=== PATIENT | female | born 1965 ===

== ENCOUNTER 2022-03-07 10:51 | Emergency (ER) | payer OTHER, SELFPAY ==
--- NOTE | ~2022-03-07 | XR_ITS ---
EXAMINATION: XR CHEST CLINICAL INFORMATION: Shortness of breath. COMPARISON: None TECHNIQUE: 2 views of the chest were obtained. FINDINGS: No significant abnormality is noted involving the heart, lungs, mediastinum, bony thorax or soft tissues. XR/XR chest 2V IMPRESSION: No acute cardiopulmonary process.
[2022-03-07 11:03] VITALS: BP 144/92; PULSE 89; RESP 20; TEMP 36.8; O2SAT 99; BMI 49.1
[2022-03-07 11:28] LABS: COVID-19 Test Negative (Negative); IDNOW Serial# 16C4AD1C
--- NOTE | 2022-03-07 12:01 | ED.GENADULT ---
HPI - General Adult General Chief complaint: Dyspnea Stated complaint: Cough, asthma Time Seen by Provider: 03/07/22 11:23 Source: patient Mode of arrival: ambulatory Limitations: no limitations History of Present Illness HPI narrative: 57-year-old female history of asthma presents to the ED for coughing, headache, and body aches for the past 2 days. Patient states coughing up green phlegm. Patient states mild relief with albuterol nebulizer and inhalers. Patient denies any leg swelling, calf pain, coughing up blood, chest pain on inspiration, or any chest pain. Patient states having nonstop coughing fits. Related Data Previous Rx's Medication Instructions Recorded azithromycin 250 mg tablet See Rx Instructions PO .COMPLEX #6 03/07/22 tabs codeine 10 mg-guaifenesin 100 mg/5 10 ml PO Q6H PRN cold symptoms 3 03/07/22 mL oral liquid (Guaifenesin AC) days #120 mL prednisone 20 mg tablet 60 mg PO DAILY 5 days #15 tabs 03/07/22 Allergies Allergy/AdvReac Type Severity Reaction Status Date / Time Penicillins [PENICILLINS] Allergy Unknown SWELLING Verified 03/07/22 11:03 Review of Systems Review of Systems: Coughing green phlegm. Headache, body aches. Yes all other systems are reviewed and are negative PMFSH Social History Social History Advance Directives: No Advance Directives Information Provided: Yes Physical Exam ED Vital Signs: Vital Signs - 24 hr 03/07/22 11:03 03/07/22 12:42 Temperature 98.2 F Pulse Rate 89 78 Respiratory Rate 20 18 Blood Pressure 144/92 H Pulse Oximetry 99 Oxygen Delivery Method Room Air BMI result Body Mass Index 49.1 Const General: cooperative, healthy appearing, comfortable, no acute distress, well developed, alert, awake and Physically active Orientation/consciousness: oriented to time and patient oriented x3 HENMT Head: Yes normal to inspection, Yes No palpable skull fracture present, Yes normocephalic, Yes atraumatic and No abrasion Eyes General: appearance normal, both eyes and all related structures Neck Neck: Yes normal visual inspection, Yes full ROM, Yes no lymphadenopathy, Yes no meningeal signs, Yes trachea midline, Yes supple, No anterior neck swelling and No tender Chest Chest palpation & inspection: normal inspection of the chest and normal palpation of entire chest wall Resp Effort & Inspection: normal respiratory effort and able to speak in complete sentences Auscultation: wheezes expiratory wheezes Cardio Jugular venous distension: no JVD Heart sounds: S1 normal heart sound present and S2 normal heart sound present GI Inspection: Yes normal to inspection and No abdominal wall ecchymosis Palpation (GI): Soft to palpation, not firm, nontender, no guarding and not rigid General: No CVA tenderness and Yes no CVA tenderness Back/Spine/Pelvis Back: no CVA tenderness, No CVA tenderness and No back tenderness Skin General skin exam: no rashes or lesions noted and elasticity normal Neuro General: oriented to time, patient oriented x3, gait normal and no meningeal signs Cranial nerves: Yes CN's II-XII intact bilaterally Extrem Other: Lower extremities negative for swelling, pitting edema, or calf tenderness. General: Yes normal to inspection and Yes full ROM Psych Appearance: grossly normal, well kempt and not disheveled Course Course Course Narrative: History physical exam sound like asthma exacerbation. Will order nebulizers steroids and cough medication. COVID swab ordered. Chest x-ray ordered. Reevaluation(s) Reevaluation #1: COVID test came back negative. Chest x-ray normal. diagnosis bronchitis. Not suspecting any cardiac etiology. History physical exam indicate asthma exacerbation. Time: 20:56 Medical Decision Making [facility] Narrative Medical decision making narrative: Asthma Lab Data Labs: Lab Results 03/07/22 Range/Units 11:08 COVID-19 ([place]) Negative (Negative) COVID-19 Clin Com See Note Discharge Plan Discharge Clinical Impression: Asthma with exacerbation Patient Disposition: Home, Self-Care Instructions: Asthma (ED) Additional Instructions: You're covid swab and chest xray were normal. Recommend continue using your albuterol inahler and nebulizer at home. Return to the ED immediately for any chest pain, coughing up blood, shortness of breath, chest pain on inspiration, leg swelling, calf pain, weakness, dizziness, rash, fever, chills, or any other concerning symptoms. Please follow up PCP Prescriptions: New prednisone 20 mg tablet 60 mg PO DAILY 5 Days Qty: 15 0RF azithromycin 250 mg tablet See Rx Instructions .ROUTE .COMPLEX Qty: 6 0RF Rx Instructions: For 250 mg dose pack: take 500 mg today (day 1), then 250 mg for 4 days (days 2-5) codeine-guaifenesin [Guaifenesin AC] 10-100 mg/5 mL liquid 10 ml PO Q6H PRN (Reason: cold symptoms) 3 Days Qty: 120 0RF Rx Instructions: Side effect of drowsiness. Do not drive or work while taking medication Stand Alone Forms: Work/School Release Print Language: Kyrgyz
[2022-03-07] MEDS: predniSONE 20 MG TABLET 60 MG PO (12:40)
[2022-03-07] MEDS: Albuterol/Iprat 2.5/0.5MG 3 ML AMPUL.NEB INHALE (12:40)
[2022-03-07] MEDS: guaiFEN/Codeine SF 200/20/10ML 10 ML LIQUID PO (12:41)
[2022-03-07 12:42] VITALS: PULSE 78; RESP 18; O2SAT 96
== END 2022-03-07 13:56 | disposition home or self-care (01) ==
PROVIDERS: Emergency Provider Student in an Organized Health Care Education/Training Program
DX: J45.901 Unspecified asthma with (acute) exacerbation (principal); Z20.822 Contact with and (suspected) exposure to COVID-19; R51.9 Headache, unspecified
CPT/HCPCS: 71046; 87635; 94640; 99284

== ENCOUNTER 2024-01-26 02:50 | Observation (INO) | payer OTHER, SELFPAY ==
[2024-01-26] VITALS (7 sets, daily range): BP systolic 123–192; BP diastolic 64–85; PULSE 52–85; RESP 12–20; TEMP 36.1–36.4; O2SAT 92–99; BMI 45.2
--- NOTE | 2024-01-26 | ECG_ITS ---
Test Reason : epigastric pain Blood Pressure : / mmHG Vent. Rate : 069 BPM Atrial Rate : 069 BPM P-R Int : 134 ms QRS Dur : 084 ms QT Int : 394 ms P-R-T Axes : 036 012 042 degrees QTc Int : 422 ms Normal sinus rhythm with sinus arrhythmia Minimal voltage criteria for LVH, may be normal variant ( R in aVL ) Borderline ECG No previous ECGs available Referred By: Generic ED Physician Electronically Signed By:HEMAL GOMEZ
--- NOTE | ~2024-01-26 | US_ITS ---
EXAMINATION: US ABDOMEN LIMITED CLINICAL INFORMATION: Right upper quadrant pain. COMPARISON: None available. TECHNIQUE: Real-time imaging of the right upper quadrant abdominal viscera. FINDINGS: PANCREAS: The body and tail of the pancreas is obscured by bowel gas. The visualized pancreas is within normal limits. LIVER: Normal. The liver is normal in size. The liver contour is normal. Parenchymal echogenicity is normal. No focal hepatic lesion. There is no intrahepatic biliary duct dilatation seen. GALLBLADDER: Multiple gallstones are noted including a 2 cm gallstone at the neck of the gallbladder. There is to be mild gallbladder distention and mild gallbladder wall thickening up to 4 mm. The patient did report pain when scanning the right upper quadrant. COMMON BILE DUCT: Normal in caliber measuring 0.4 cm in diameter. RIGHT KIDNEY: Normal. No hydronephrosis. No renal calculi. There is a 3.5 cm cyst midpole right kidney. The kidney measures 10.8 cm in maximum dimension. FREE FLUID: None. US/US abdomen limited IMPRESSION: There are multiple gallstones including a 2 cm gallstone at the neck of the gallbladder. There is mild gallbladder distention and mild gallbladder wall thickening up to 4 mm. The patient did report pain when scanning the right upper quadrant. Findings are concerning for acute cholecystitis.
[2024-01-26 03:11] LABS: MANUAL DIFF FLAG NO
[2024-01-26 03:12] LABS: Basophils Percent Auto 0.7 % (0-2); Eosinophils Absolute Auto 0.1 X10*3/uL (0.0-0.4); Eosinophils Percent Auto 1.9 % (0-4); Hemoglobin 11.9 g/dl (12.0-16.0); Imm Gran Abs Auto 0.01 X10*3/uL (0.00-0.03); Imm Gran Pct Auto 0.2 % (0.0-0.4); Lymphocytes Absolute Auto 1.3 X10*3/uL (1.2-4.9); Lymphocytes Percent Auto 23.4 % (20-40); Mean Corpuscular Volume 88.2 fL (80.0-98.0); Mean Platelet Volume 12.4 fL (9.4-12.3); Monocytes Absolute Auto 0.4 X10*3/uL (0.1-1.2); Monocytes Percent Auto 7.8 % (2-11); Neutrophils Absolute Auto 3.7 x10*3/uL (2.0-8.3); Platelet Count 192 X10*3/uL (160-400); Red Blood Count 3.97 X10*6/uL (4.20-5.50); Red Cell Distribution Width 13.5 % (11.0-16.0); White Blood Count 5.7 X10*3/uL (4.8-10.8)
[2024-01-26] MEDS: ondansetron HCL 4 MG/2 ML VIAL IVPUSH ×2 (03:26→04:56)
[2024-01-26] MEDS: 0.9 % Sodium Chloride 1,000 ML 999 ML IV (03:26)
[2024-01-26] MEDS: Famotidine/PF 20 MG/2 ML VIAL IVPUSH (03:26)
[2024-01-26] MEDS: Morphine Sulfate 4 MG/ML CARTRIDGE IVPUSH (03:26)
--- NOTE | 2024-01-26 03:27 | ED_ITS ---
HPI - Abdominal Pain General Chief Complaint: Nausea/Vomiting/Diarrhea Stated Complaint: vomiting Time Seen by Provider: 01/26/24 03:06 Source: patient and old records reviewed Mode of arrival: ambulatory Limitations: no limitations History of Present Illness ED Provider: DELMER DANIELS narrative: 58 yo female with PMH of HTN and prior hysterectomy ate at home for dinner had rice and steak as well as chocolate cake for dinner. She woke up with severe RUQ pain radiating to back with n/v. No diarrhea. She has never had this before. No sick contacts. MD elicited complaint: abdominal pain Pertinent past history: none Onset (ago): hour(s) (1am) Pain Consistency: constant Location: RUQ Severity: severe Quality: stabbing Radiation: back Migration to: no migration Exacerbating factors: eating and movement Relieving factors: nothing Associated symptoms: nausea and vomiting Related Data Previous Rx's ?Medication ?Instructions ?Recorded azithromycin 250 mg tablet See Rx Instructions PO .COMPLEX #6 03/07/22 tabs codeine 10 mg-guaifenesin 100 mg/5 10 ml PO Q6H PRN cold symptoms 3 03/07/22 mL oral liquid (Guaifenesin AC) days #120 mL prednisone 20 mg tablet 60 mg (3 x 20 mg) PO DAILY 5 days 03/07/22 #15 tabs Allergies Allergy/AdvReac Type Severity Reaction Status Date / Time Penicillins [PENICILLINS] Allergy Unknown SWELLING Verified 01/26/24 02:53 Review of Systems Review of Systems Constitutional : No Weight loss, No Fever, No Chills ENT/Mouth : No sore throat, No Rhinorrhea Eyes: No Swelling, No Redness Cardiovascular : No Chest Pain, No SOB, NoEdema Respiratory : No Cough, No Sputum, No Wheezing Gastrointestinal : Positive Nausea, Positive Vomiting, no Diarrhea, positive abdominal Pain, No Hematochezia, No Melena Genitourinary : No Dysuria, No Urinary Frequency, No Hematuria, No Urgency Musculoskeletal : No joint pain, No Myalgias, No Joint Swelling Skin : No Skin Lesions, No rash Neuro : No Weakness, No Numbness, No Dizziness, No Headache Psych : No Anxiety/Panic, No Depression All other systems reviewed and are negative. [facility] [place] [place] Past Medical History Attestation statement: The following information was validated with the patient. Medical History (Updated 01/26/24 @ 04:44 by Lupis Morrison DO) HTN (hypertension) Surgical History (Updated 01/26/24 @ 03:48 by Lupis Morrison DO) History of hysterectomy Social History Social History (Updated 01/26/24 @ 03:48 by Lupis Morrison DO) Alcohol intake: never Patient Tobacco Use Status: Never used Tobacco Smoked in Last 30 Days: No Use of substances other than those prescribed or required for medical reasons: No Advance Directives: No Advance Directives Information Provided: Yes Patient : No Physical Exam ED Vital Signs: Vital Signs - 24 hr 01/26/24 02:53 01/26/24 03:26 01/26/24 04:56 Temperature 97.6 F Pulse Rate 85 Respiratory Rate 20 16 14 Blood Pressure 192/85 H Pulse Oximetry 96 Oxygen Delivery Method Room Air 01/26/24 06:01 Temperature 97 F Pulse Rate 75 Respiratory Rate 14 Blood Pressure 152/81 H Pulse Oximetry 92 Oxygen Delivery Method Room Air BMI result Body Mass Index 45.2 Appearance: Alert. Oriented X3. in pain mild acute distress. Eyes: Pupils equal, round and reactive to light. ENT: Pharynx normal. Neck: Normal inspection. Neck supple. CVS: Normal heart rate and rhythm. Pulses normal. Respiratory: No respiratory distress. Breath sounds normal. Abdomen: Soft and moderate RUQ pain no rebound + heller's sign Skin: Skin warm and dry. Normal skin color. Normal skin turgor. Extremities: No lower extremity edema. No calf ttp Neuro: Oriented X 3. No motor deficit. No sensory deficit. Medical Decision Making Medical Decision Making [facility] Narrative: 58 yo female with PMH of HTN and hysterectomy here with RUQ pain and vomiting after eating dinner at home no sick contacts denies CP/SOB pain is RUQ pain radiates to the back at this time will need labs, US to evaluate GB - IV morphine for pain ordered. Possible gastritis, biliary colic, pancreatitis, less likely ACS or renal colic. Differential Diagnosis Differential Diagnoses: The differential diagnosis associated with the presentation includes pancreatitis, gastritis, biliary colic Admission/Observation Consideration of admission/observation: Escalation of care including admission/observation considered will admit for pain control and further management Consult Healthcare Provider Management of the patient was discussed with: Judge (Cassandra to admit) Lab Data [facility] Lab Attestation statement: I reviewed the patient's lab results. 01/26/24 03:06 01/26/24 03:06 Labs: Lab Results 01/26/24 01/26/24 Range/Units 03:06 05:57 WBC 5.7 (4.8-10.8) X10*3/uL RBC 3.97 L (4.20-5.50) X10*6/uL Hgb 11.9 L (12.0-16.0) g/dl Hct 35.0 L (37.0-47.0) % MCV 88.2 (80.0-98.0) fL MCH 30.0 (27.0-33.0) pg MCHC 34.0 (31.0-35.0) g/dl RDW 13.5 (11.0-16.0) % Plt Count 192 (160-400) X10*3/uL MPV 12.4 H (9.4-12.3) fL Immature Gran % (Auto) 0.2 (0.0-0.4) % Neut % (Auto) 66.0 (45-73) % Lymph % (Auto) 23.4 (20-40) % [place] % (Auto) 7.8 (2-11) % Eos % (Auto) 1.9 (0-4) % Baso % (Auto) 0.7 (0-2) % Lymph # (Auto) 1.3 (1.2-4.9) X10*3/uL [place] # (Auto) 0.4 (0.1-1.2) X10*3/uL Eos # (Auto) 0.1 (0.0-0.4) X10*3/uL Baso # (Auto) 0.0 (0.0-0.2) X10*3/uL Abs Immat Gran (auto) 0.01 (0.00-0.03) X10*3/uL Absolute Neuts (auto) 3.7 (2.0-8.3) x10*3/uL Absolute Nucleated RBC 0.000 (0.0-0.012) X10*3/uL Nucleated RBC % (auto) 0.0 (0.0-0.2) /100WBC Sodium 144 (135-145) mmol/L Potassium 3.8 (3.3-5.1) mmol/L Chloride 109 H (96-108) mmol/L Carbon Dioxide 24 (22-29) mmol/L Anion Gap 15 (12-20) BUN 16 (9-16) mg/dL Creatinine 0.84 (0.5-1.4) mg/dL Estim Creat Clear Calc 82.0 Estimated GFR > 60 Random Glucose 130 H (60-115) mg/dL Calcium 10.1 (8.4-10.2) mg/dL Total Bilirubin 0.5 (0.0-1.0) mg/dL AST 14 (5-31) U/L ALT 12 (0-31) U/L Alkaline Phosphatase 108 (39-117) U/L Troponin I High Sens 4.5 (<3.5-17.0) ng/L Total Protein 6.7 (6.5-8.0) g/dL Albumin 4.0 (3.5-5.0) g/dL Lipase 21 (8-78) U/L Urine Color Yellow Urine Appearance Clear Urine pH 6.0 (5.0-9.0) Ur Specific [place] >= 1.030 H (1.005-1.025) Urine Protein Trace (Neg-Trace) mg/dL Urine Glucose (UA) Negative (Negative) mg/dL Urine Ketones Negative (Negative) mg/dL Urine Blood Negative (Negative) Urine Nitrite Negative (Negative) Ur Leukocyte Esterase Negative (Negative) Independent Interpretation I performed an independent interpretation of an: EKG and Ultrasound (+ stones, impacted stone) Interpretation: Rate: 69 Rhythm: NSR [place]: normal Normal P waves. Normal ZAYNAB. Normal QRS complex. ST T wave : inverted t wave V1, no PEDRO LUIS qTC: 422 prior studies: no acute ischemia The study has been interpreted contemporaneously by me. . Radiology Impression Discussion of test interpretation with radiology: I have reviewed the radiologist's reading. External Record Review External record reviewed: Inpatient record Prescription Management I considered prescription management with: Pain Medication and Other Medications Administered Generic Name Dose Route Start Last Admin Trade Name Freq PRN Reason Stop Dose Admin Sodium Chloride 1,000 mls @ 100 mls/hr 01/26/24 04:45 01/26/24 05:38 Ns IVCONT 100 mls/hr .Q10H [place] Administration Discontinued Medications Generic Name Dose Route Start Last Admin Trade Name Freq PRN Reason Stop Dose Admin Famotidine 20 mg 01/26/24 03:16 01/26/24 03:26 Famotidine/Pf 20 Mg/2 Ml Vial IVPUSH 01/26/24 03:17 20 mg ONCE ONE Administration Hydromorphone HCl 1 mg 01/26/24 04:41 01/26/24 04:56 Hydromorphone Hcl 1 Mg/Ml Syringe IVPUSH 01/26/24 04:42 1 mg ONCE ONE Administration Protocol Sodium Chloride 1,000 mls @ 999 mls/hr 01/26/24 03:16 01/26/24 04:30 Ns IV 01/26/24 04:16 Infused .Q1H1M ONE Infusion Ceftriaxone Sodium 1 gm/ 50 mls @ 100 mls/hr 01/26/24 04:43 01/26/24 05:25 Sodium Chloride IV 01/26/24 05:12 Infused ONCE ONE Infusion Metronidazole 500 mg in 100 mls @ 100 mls/hr 01/26/24 04:43 01/26/24 05:23 Flagyl IV 01/26/24 05:42 100 mls/hr ONCE ONE Administration Morphine Sulfate 4 mg 01/26/24 03:16 01/26/24 03:26 Morphine Sulfate 4 Mg/Ml Cartridge IVPUSH 01/26/24 03:17 4 mg ONCE ONE Administration Protocol Ondansetron HCl 4 mg 01/26/24 03:16 01/26/24 03:26 Ondansetron Hcl 4 Mg/2 Ml Vial IVPUSH 01/26/24 03:17 4 mg ONCE ONE Administration Ondansetron HCl 4 mg 01/26/24 04:44 01/26/24 04:56 Ondansetron Hcl 4 Mg/2 Ml Vial IVPUSH 01/26/24 04:45 4 mg ONCE ONE Administration Critical Care Time Critical Care Time Critical Care Time: Yes Total Critical Care Time: 40 Attestation: repeat IV pain medications with some improvement, IV morphine, IV dilaudid, admission I attest to this time spent taking care of the patient Discharge Plan Discharge Clinical Impression: Acute cholecystitis Abdominal pain Qualifiers: Abdominal location: right upper quadrant Qualified Code(s): R10.11 - Right upper quadrant pain Patient Disposition: Admitted As Inpatient Print Language: Filipino
[2024-01-26 03:30] LABS: Alanine Aminotransferase 12 U/L (0-31); Alkaline Phosphatase 108 U/L (39-117); Anion Gap 15 (12-20); Aspartate Amino Transferase 14 U/L (5-31); Bilirubin Total 0.5 mg/dL (0.0-1.0); Blood Urea Nitrogen 16 mg/dL (9-16); Calcium 10.1 mg/dL (8.4-10.2); Carbon Dioxide 24 mmol/L (22-29); Chloride 109 mmol/L (96-108); Estimated Glomerular Filt Rate > 60; Glucose Random 130 mg/dL (60-115); Lipase 21 U/L (8-78); Potassium 3.8 mmol/L (3.3-5.1); Sodium 144 mmol/L (135-145); Total Protein 6.7 g/dL (6.5-8.0)
--- NOTE | 2024-01-26 03:38 | PC.NURSE ---
Patient presenting for nausea, vomiting x6 episodes since 0100 this am with 8/10 epigastric pain that radiates around to the back. Patient changed into a hospital attire, 20 G IV line established in [facility], patient medicated per SEP. Call minor placed within patient's reach, plan of care ongoing.
[2024-01-26 03:48] LABS: Troponin-I High Sensitivity 4.5 ng/L (<3.5-17.0)
--- NOTE | 2024-01-26 04:49 | PC.NURSE ---
Per Dr. Morrison blood draw for lactic acid and blood cultures is not needed at this time.
[2024-01-26] MEDS: cefTRIAXone sodium 1 GM in 0.9 % Sodium Chloride 50 ML IV ×2 (04:56→18:26)
[2024-01-26] MEDS: HYDROmorphone HCl 1 MG/ML SYRINGE IVPUSH (04:56)
[2024-01-26] MEDS: metroNIDAZOLE/NS 500 MG/100 ML PIGGYBACK 100 MG IV ×2 (05:23→21:11)
[2024-01-26] MEDS: 0.9 % Sodium Chloride 1,000 ML 100 ML IVCONT (05:38)
[2024-01-26 06:04] LABS: Appearance Urine Clear; Color Urine Yellow; Glucose Urine UA Negative (Negative); Leukocyte Esterase Urine Negative (Negative); Nitrite Urine Negative (Negative); Specific Gravity - Urine >= 1.030 (1.005-1.025); Urine Blood Negative (Negative); Urine Ketones Negative (Negative); Urine Protein Trace mg/dL (Neg-Trace)
--- NOTE | 2024-01-26 06:19 | PM.HPGS ---
History of Present Illness History of Present Illness Date of Service: 01/26/24 Chief complaint: vomiting Narrative: Daily Walker is a 58 year old female Review of Systems Review of Systems: Yes all other systems are reviewed and are negative Constitutional: Constitutional: Denies chills, Denies fever(s), Denies headache(s), Denies poor appetite and Denies weakness ENT: Denies headache(s) Cardiovascular: Cardiovascular: Denies chest pain, Denies irregular heart rhythm, Denies palpitations and Denies dyspnea Respiratory: Respiratory: Denies cough, Denies excessive phlegm production and Denies dyspnea Gastrointestinal: Gastrointestinal: Denies abdominal pain, Denies bloating, Denies change in bowel habits, Denies constipation, Denies heartburn, Denies diarrhea, Denies nausea and Denies vomiting Genitourinary: Genitourinary: Denies urinary frequency Musculoskeletal: Musculoskeletal: Denies back pain, Denies muscle weakness and Denies numbness Integumentary/Breasts: Skin/Breast: Denies changing lesions and Denies unusual bruising Neurologic: Denies headache(s), Denies numbness, Denies paresthesias and Denies weakness Psychiatric: Psychiatric: Denies anxiety and Denies depression Endocrine: Endocrine: Denies palpitations Hematologic/Lymphatic: Hematologic/Lymphatic: Denies lymphadenopathy [facility] Past Medical History Medical History (Updated 01/26/24 @ 04:44 by Lupis Morrison DO) HTN (hypertension) Surgical History Surgical History (Updated 01/26/24 @ 03:48 by Lupis Morrison DO) History of hysterectomy Social History Social History (Updated 01/26/24 @ 03:48 by Lupis Morrison DO) Alcohol intake: never Patient Tobacco Use Status: Never used Tobacco Smoked in Last 30 Days: No Use of substances other than those prescribed or required for medical reasons: No Advance Directives: No Advance Directives Information Provided: Yes Patient : No Meds Allergies Allergy/AdvReac Type Severity Reaction Status Date / Time Penicillins [PENICILLINS] Allergy Unknown SWELLING Verified 01/26/24 02:53 Active Medications: Current Medications Sodium Chloride (Ns) 1,000 mls @ 100 mls/hr IVCONT .Q10H [place] Last Admin: 01/26/24 05:38 Dose: 100 mls/hr Physical Exam Vital Signs: Vital Signs: Last Vital Signs Temp 97 F 01/26/24 06:01 Pulse 75 07/22/24 06:01 Resp 14 01/26/24 06:01 BP 152/81 H 01/26/24 06:01 Pulse Ox 92 01/26/24 06:01 O2 Del Method Room Air 01/26/24 06:01 BMI result Body Mass Index 45.2 Const: General: cooperative and no acute distress Nutritional Appearance: well nourished Orientation/consciousness: patient oriented x3 Limitations: no limitations HEENT: Head: Yes normocephalic and Yes atraumatic Ears: hearing grossly normal bilaterally Resp: Effort & Inspection: normal respiratory effort, no audible wheezes, no cough and no respiratory distress Cardio: Jugular venous distension: no JVD GI: Inspection: Yes normal to inspection Skin: Other: Warm, dry, no rash Neuro: General: patient oriented x3 Extrem: General: Yes no clubbing, cyanosis or edema Results Results Labs: Short CBC 01/26/24 Range/Units 03:06 WBC 5.7 (4.8-10.8) X10*3/uL Hgb 11.9 L (12.0-16.0) g/dl Hct 35.0 L (37.0-47.0) % Plt Count 192 (160-400) X10*3/uL BMP 01/26/24 03:06 Sodium 144 Potassium 3.8 Chloride 109 H Carbon Dioxide 24 BUN 16 Creatinine 0.84 Calcium 10.1 Liver Function 01/26/24 Range/Units 03:06 Total Bilirubin 0.5 (0.0-1.0) mg/dL AST 14 (5-31) U/L ALT 12 (0-31) U/L Alkaline Phosphatase 108 (39-117) U/L Albumin 4.0 (3.5-5.0) g/dL Urine 01/26/24 Range/Units 05:57 Urine Color Yellow Urine Appearance Clear Urine pH 6.0 (5.0-9.0) Ur Specific [employer] >= 1.030 H (1.005-1.025) Urine Protein Trace (Neg-Trace) mg/dL Urine Glucose (UA) Negative (Negative) mg/dL Assessment and Plan (1) Acute cholecystitis: Status: Acute Procedures Date of Service Date of Service: 01/26/24
[2024-01-26] MEDS: Acetaminophen 1,000 MG/100 ML PIGGYBACK 400 MG IV ×3 (06:46→23:12)
[2024-01-26 06:54] LABS: INTERNATIONAL NORM RATIO 1.1 (0.9-1.1); Prothrombin Time 12.9 SEC (11.1-13.3)
--- NOTE | 2024-01-26 07:00 | PC.NURSE ---
Verbal order received from Dr. Trujillo to d/c NS at 100 mL/hr and start D5 in LR at 125 mg. TRAMAINE Fernandez notified.
[2024-01-26] MEDS: Dextrose 5 % and Lactated Ring 1,000 ML 125 ML IVCONT ×2 (07:19→18:23)
--- NOTE | 2024-01-26 08:34 | PHA.MEDREC ---
Pharmacy Consult ? Medication Reconciliation Pharmacy has completed the medication reconciliation. Spoke to patient to confirm med list.
--- NOTE | 2024-01-26 10:26 | PC.NURSE ---
Called Pharmacy for med that is not in the pyxis. waiting for the med currently
--- NOTE | 2024-01-26 10:37 | P.CONAN_ITS ---
HPI - Anesthesia Eval Anesthesia Pre-Procedure Meds If yes to any meds - educate patient: Pt education - increased risk of asp iration and/or euvolemic DKA PMFSH Active Problems Active Problems: All Active Problems Acute cholecystitis (Acute) Abdominal pain (Acute) Past Medical History Medical History (Updated 01/26/24 @ 04:44 by Lupis Morrison DO) HTN (hypertension) Surgical History Surgical History (Updated 01/26/24 @ 03:48 by Lupis Morrison DO) History of hysterectomy Social History Social History (Updated 01/26/24 @ 03:48 by Lupis Morrison DO) Alcohol intake: never Patient Tobacco Use Status: Never used Tobacco Smoked in Last 30 Days: No Use of substances other than those prescribed or required for medical reasons: No Advance Directives: No Advance Directives Information Provided: Yes Patient : No Meds Allergies Allergy/AdvReac Type Severity Reaction Status Date / Time Penicillins [PENICILLINS] Allergy Unknown SWELLING Verified 01/26/24 02:53 Active Medications: Current Medications Hydromorphone HCl (Hydromorphone Hcl 0.5 Mg/0.5 Ml Syringe) 0.5 mg IVPUSH Q3H PRN; Protocol PRN Reason: Pain, Severe (Pain Scale 7-10) Sodium Chloride (Ns) 1,000 mls @ 100 mls/hr IVCONT .Q10H [place] Last Infusion: 01/26/24 07:09 Dose: 100 mls/hr Acetaminophen (Ofirmev) 1,000 mg in 100 mls @ 400 mls/hr IV Q6H [place] Stop: 01/27/24 00:44 Last Infusion: 01/26/24 07:07 Dose: Infused Dextrose/Lactated Ringer's (D5lr) 1,000 mls @ 125 mls/hr IVCONT .Q8H [place] Last Admin: 01/26/24 07:19 Dose: 125 mls/hr Ondansetron HCl (Ondansetron Hcl 4 Mg/2 Ml Vial) 4 mg IVPUSH QID PRN PRN Reason: Nausea Home Medications ?Medication ?Instructions ?Recorded ?Confirmed ?Last Taken ?Type cholecalciferol (vitamin D3) 50 50 mcg PO DAILY 01/26/24 01/26/24 01/24/24 History mcg (2,000 unit) capsule losartan 50 mg tablet 50 mg PO DAILY 01/26/24 01/26/24 01/24/24 History spironolactone 25 mg tablet 25 mg PO BEDTIME 01/26/24 01/26/24 01/24/24 History Exam Height,Weight and Vital Signs: Height 5 ft 1 in Weight 108.5 kg Last Vital Signs Temp 97 F 01/26/24 06:01 Pulse 70 01/26/24 07:31 Resp 12 01/26/24 07:31 BP 123/64 01/26/24 07:31 Pulse Ox 95 01/26/24 07:31 O2 Del Method Room Air 01/26/24 07:31 Pertinent Lab Results Pertinent Lab Results: Laboratory Tests 01/26/24 01/26/24 01/26/24 03:06 05:57 06:31 WBC 5.7 RBC 3.97 L Hgb 11.9 L Hct 35.0 L MCV 88.2 MCH 30.0 MCHC 34.0 RDW 13.5 Plt Count 192 MPV 12.4 H Immature Gran % (Auto) 0.2 Neut % (Auto) 66.0 Lymph % (Auto) 23.4 [place] % (Auto) 7.8 Eos % (Auto) 1.9 Baso % (Auto) 0.7 Lymph # (Auto) 1.3 [place] # (Auto) 0.4 Eos # (Auto) 0.1 Baso # (Auto) 0.0 Abs Immat Gran (auto) 0.01 Absolute Neuts (auto) 3.7 Absolute Nucleated RBC 0.000 Nucleated RBC % (auto) 0.0 PT 12.9 INR 1.1 Sodium 144 Potassium 3.8 Chloride 109 H Carbon Dioxide 24 Anion Gap 15 BUN 16 Creatinine 0.84 Estim Creat Clear Calc 82.0 Estimated GFR > 60 Random Glucose 130 H Calcium 10.1 Total Bilirubin 0.5 AST 14 ALT 12 Alkaline Phosphatase 108 Troponin I High Sens 4.5 Total Protein 6.7 Albumin 4.0 Lipase 21 Urine Color Yellow Urine Appearance Clear Urine pH 6.0 Ur Specific [place] >= 1.030 H Urine Protein Trace Urine Glucose (UA) Negative Urine Ketones Negative Urine Blood Negative Urine Nitrite Negative Ur Leukocyte Esterase Negative Blood Type Antibody Screen 01/26/24 06:45 WBC RBC Hgb Hct MCV MCH MCHC RDW Plt Count MPV Immature Gran % (Auto) Neut % (Auto) Lymph % (Auto) [place] % (Auto) Eos % (Auto) Baso % (Auto) Lymph # (Auto) [place] # (Auto) Eos # (Auto) Baso # (Auto) Abs Immat Gran (auto) Absolute Neuts (auto) Absolute Nucleated RBC Nucleated RBC % (auto) PT INR Sodium Potassium Chloride Carbon Dioxide Anion Gap BUN Creatinine Estim Creat Clear Calc Estimated GFR Random Glucose Calcium Total Bilirubin AST ALT Alkaline Phosphatase Troponin I High Sens Total Protein Albumin Lipase Urine Color Urine Appearance Urine pH Ur Specific [place] Urine Protein Urine Glucose (UA) Urine Ketones Urine Blood Urine Nitrite Ur Leukocyte Esterase Blood Type O Negative Antibody Screen NEGATIVE
--- NOTE | 2024-01-26 11:03 | PM.HPGS ---
History of Present Illness History of Present Illness Date of Service: 01/26/24 Chief complaint: acute cholecystitis Narrative: Daily Walker is a 58 year old female with PMH significant for hypertension, asthma who presented to the ED with complaints of acute onset of abdominal pain. She reports she awoke around 1am with severe epigastric/RUQ pain that wrapped around to her back. It was associated with nausea and vomiting. She thought it was heartburn at first and tooks tums with no relief. The pain worsened in severity and became so bad she sought care in the ED. Work up included CBC, BMP, LFTs. ABD US showed gallstone impacted at the GB neck, mild gallbladder distention and mild wall thickening. She denies similar episodes of prior pain. She denies fever, chills, change in skin or urine color. She has a surgical history significant for a hysterectomy. Review of Systems Constitutional: Constitutional: Denies chills and Denies fever(s) ENT: Denies dizziness Cardiovascular: Cardiovascular: Denies chest pain and Denies dyspnea Respiratory: Respiratory: Denies cough and Denies dyspnea Gastrointestinal: Gastrointestinal: Reports as per HPI, Denies diarrhea and Denies hematemesis Genitourinary: Genitourinary: Denies dysuria Integumentary/Breasts: Skin/Breast: Denies rash and Denies jaundice Neurologic: Denies dizziness PMFSH Past Medical History Medical History (Updated 01/26/24 @ 04:44 by Lupis Morrison DO) HTN (hypertension) Surgical History Surgical History (Updated 01/26/24 @ 03:48 by Lupis Morrison DO) History of hysterectomy Social History Social History (Updated 01/26/24 @ 03:48 by Lupis Morrison DO) Alcohol intake: never Patient Tobacco Use Status: Never used Tobacco Smoked in Last 30 Days: No Use of substances other than those prescribed or required for medical reasons: No Advance Directives: No Advance Directives Information Provided: Yes Patient : No Meds Allergies Allergy/AdvReac Type Severity Reaction Status Date / Time Penicillins [PENICILLINS] Allergy Unknown SWELLING Verified 01/26/24 02:53 Active Medications: Current Medications Calcium Carbonate (Calcium Carbonate 750 Mg Tab.Chew) 750 mg PO Q4H PRN PRN Reason: Heartburn Hydromorphone HCl (Hydromorphone Hcl 0.5 Mg/0.5 Ml Syringe) 0.5 mg IVPUSH Q3H PRN; Protocol PRN Reason: Pain, Severe (Pain Scale 7-10) Sodium Chloride (Ns) 1,000 mls @ 100 mls/hr IVCONT .Q10H [facility] Last Infusion: 01/26/24 07:09 Dose: 100 mls/hr Acetaminophen (Ofirmev) 1,000 mg in 100 mls @ 400 mls/hr IV Q6H [facility] Stop: 01/27/24 00:44 Last Infusion: 01/26/24 07:07 Dose: Infused Dextrose/Lactated Ringer's (D5lr) 1,000 mls @ 125 mls/hr IVCONT .Q8H [facility] Last Admin: 01/26/24 07:19 Dose: 125 mls/hr Cefotetan Disodium 2 gm/ (Sodium Chloride) 50 mls @ 100 mls/hr IV PREOP ONE Stop: 01/26/24 11:30 Magnesium Hydroxide (Milk Of Magnesia 30 Ml Oral.Susp) 30 ml PO DAILY PRN PRN Reason: Constipation Melatonin (Melatonin 3 Mg Tablet) 6 mg PO BEDTIME PRN PRN Reason: Insomnia Ondansetron HCl (Ondansetron Hcl 4 Mg/2 Ml Vial) 4 mg IVPUSH QID PRN PRN Reason: Nausea Oxycodone HCl (Oxycodone Hcl Immed Release 5 Mg Tablet) 5 mg PO Q6H PRN PRN Reason: Pain, Moderate(Pain Scale 4-6) Sodium Chloride (0.9 % Sodium Chloride Flush 3 Ml Syringe) 3 ml IVFLUSH QSHIFT [facility] Home Medications ?Medication ?Instructions ?Recorded ?Confirmed ?Last Taken ?Type cholecalciferol (vitamin D3) 50 50 mcg PO DAILY 01/26/24 01/26/24 01/24/24 History mcg (2,000 unit) capsule losartan 50 mg tablet 50 mg PO DAILY 01/26/24 01/26/24 01/24/24 History spironolactone 25 mg tablet 25 mg PO BEDTIME 01/26/24 01/26/24 01/24/24 History Physical Exam Vital Signs: Vital Signs: Last Vital Signs Temp 97 F 01/26/24 06:01 Pulse 70 01/26/24 07:31 Resp 12 01/26/24 07:31 BP 123/64 01/26/24 07:31 Pulse Ox 95 01/26/24 07:31 O2 Del Method Room Air 01/26/24 07:31 BMI result Body Mass Index 45.2 Const: General: comfortable, no acute distress and alert Orientation/consciousness: patient oriented x3 Resp: Effort & Inspection: normal respiratory effort Cardio: Rate: regular rate GI: Other: corpulent abdomen Inspection: No distended Palpation (GI): Soft to palpation, Tenderness to palpation present (GI) (mild RUQ/epigastric tenderness) Grover's sign negative and with no rebound tenderness, no guarding and not rigid Percussion: Yes normal to percussion Skin: General skin exam: no rashes or lesions noted and no jaundice Neuro: General: patient oriented x3 and moves all extremities Extrem: General: Yes no clubbing, cyanosis or edema Results Results Labs: Short CBC 01/26/24 Range/Units 03:06 WBC 5.7 (4.8-10.8) X10*3/uL Hgb 11.9 L (12.0-16.0) g/dl Hct 35.0 L (37.0-47.0) % Plt Count 192 (160-400) X10*3/uL BMP 01/26/24 03:06 Sodium 144 Potassium 3.8 Chloride 109 H Carbon Dioxide 24 BUN 16 Creatinine 0.84 Calcium 10.1 Liver Function 01/26/24 Range/Units 03:06 Total Bilirubin 0.5 (0.0-1.0) mg/dL AST 14 (5-31) U/L ALT 12 (0-31) U/L Alkaline Phosphatase 108 (39-117) U/L Albumin 4.0 (3.5-5.0) g/dL Urine 01/26/24 Range/Units 05:57 Urine Color Yellow Urine Appearance Clear Urine pH 6.0 (5.0-9.0) Ur Specific [employer] >= 1.030 H (1.005-1.025) Urine Protein Trace (Neg-Trace) mg/dL Urine Glucose (UA) Negative (Negative) mg/dL Assessment and Plan (1) Acute cholecystitis: Status: Acute Plan 58 year old female with acute onset of epigastric/RUQ pain, nausea and vomiting with RUQ tenderness and ABD US demonstrating a distended gallbladder, gallstone impacted at GB neck and mild wall thickening consistent with acute cholecystitis. It was recommended to proceed with laparoscopic possible open cholecystectomy. Risks, benefits, alternatives of laparoscopic possible open cholecystectomy were reviewed with the patient including but not limited to bleeding, infection, numbness, pain, poor healing, injury to the liver, bowel or bile ducts, leak, retained stones and the patient wishes to proceed.? Arrangements will be made for this.?All questions were answered. Quality Stroke Does the patient have a stroke diagnosis?: No VTE Prior VTE?: No VTE Risk Level:: Surgical - moderate VTE Device Contraindication: N/A - Device Ordered VTE Drug Contraindication: N/A - Med Ordered Procedures Date of Service Date of Service: 01/26/24
--- NOTE | 2024-01-26 14:12 | HO.ANESPROP2 ---
[facility] Active Problems Active Problems: All Active Problems Acute cholecystitis (Acute) Abdominal pain (Acute) Past Medical History Medical History HTN (hypertension) Functional capacity: independent ambulation Patient : No Family History Family history of problems with anesthesia: No Surgical History Surgical History History of hysterectomy History of Problems with Anesthesia: No Social History Social History Alcohol intake: never Patient Tobacco Use Status: Never used Tobacco Smoked in Last 30 Days: No Second Hand Smoke Exposure: No Use of substances other than those prescribed or required for medical reasons: No Are you DNR?: No Advance Directives: No Advance Directives Information Provided: Yes Advance Directives on File: No Patient : No Meds Allergies Allergy/AdvReac Type Severity Reaction Status Date / Time Penicillins [PENICILLINS] Allergy Unknown SWELLING Verified 01/26/24 02:53 Active Medications: Current Medications Calcium Carbonate (Calcium Carbonate 750 Mg Tab.Chew) 750 mg PO Q4H PRN PRN Reason: Heartburn Hydromorphone HCl (Hydromorphone Hcl 0.5 Mg/0.5 Ml Syringe) 0.5 mg IVPUSH Q3H PRN; Protocol PRN Reason: Pain, Severe (Pain Scale 7-10) Sodium Chloride (Ns) 1,000 mls @ 100 mls/hr IVCONT .Q10H [facility] Last Infusion: 01/26/24 07:09 Dose: 100 mls/hr Acetaminophen (Ofirmev) 1,000 mg in 100 mls @ 400 mls/hr IV Q6H [facility] Stop: 01/27/24 00:44 Last Infusion: 01/26/24 07:07 Dose: Infused Dextrose/Lactated Ringer's (D5lr) 1,000 mls @ 125 mls/hr IVCONT .Q8H [facility] Last Admin: 01/26/24 07:19 Dose: 125 mls/hr Magnesium Hydroxide (Milk Of Magnesia 30 Ml Oral.Susp) 30 ml PO DAILY PRN PRN Reason: Constipation Melatonin (Melatonin 3 Mg Tablet) 6 mg PO BEDTIME PRN PRN Reason: Insomnia Ondansetron HCl (Ondansetron Hcl 4 Mg/2 Ml Vial) 4 mg IVPUSH QID PRN PRN Reason: Nausea Oxycodone HCl (Oxycodone Hcl Immed Release 5 Mg Tablet) 5 mg PO Q6H PRN PRN Reason: Pain, Moderate(Pain Scale 4-6) Sodium Chloride (0.9 % Sodium Chloride Flush 3 Ml Syringe) 3 ml IVFLUSH QSHIFT [facility] Home Medications ?Medication ?Instructions ?Recorded ?Confirmed ?Last Taken ?Type cholecalciferol (vitamin D3) 50 50 mcg PO DAILY 01/26/24 01/26/24 01/24/24 History mcg (2,000 unit) capsule losartan 50 mg tablet 50 mg PO DAILY 01/26/24 01/26/24 01/24/24 History spironolactone 25 mg tablet 25 mg PO BEDTIME 01/26/24 01/26/24 01/24/24 History Exam Height,Weight and Vital Signs: Height 5 ft 1 in Weight 108.5 kg Last Vital Signs Temp 97.4 F 01/26/24 12:55 Pulse 52 01/26/24 12:55 Resp 16 01/26/24 12:55 BP 164/66 H 01/26/24 12:55 Pulse Ox 99 01/26/24 12:55 O2 Del Method Room Air 01/26/24 12:55 Pertinent Lab Results Pertinent Lab Results: oLaboratory Tests 01/26/24 01/26/24 01/26/24 03:06 05:57 06:31 WBC 5.7 RBC 3.97 L Hgb 11.9 L Hct 35.0 L MCV 88.2 MCH 30.0 MCHC 34.0 RDW 13.5 Plt Count 192 MPV 12.4 H Immature Gran % (Auto) 0.2 Neut % (Auto) 66.0 Lymph % (Auto) 23.4 [place] % (Auto) 7.8 Eos % (Auto) 1.9 Baso % (Auto) 0.7 Lymph # (Auto) 1.3 [place] # (Auto) 0.4 Eos # (Auto) 0.1 Baso # (Auto) 0.0 Abs Immat Gran (auto) 0.01 Absolute Neuts (auto) 3.7 Absolute Nucleated RBC 0.000 Nucleated RBC % (auto) 0.0 PT 12.9 INR 1.1 Sodium 144 Potassium 3.8 Chloride 109 H Carbon Dioxide 24 Anion Gap 15 BUN 16 Creatinine 0.84 Estim Creat Clear Calc 82.0 Estimated GFR > 60 Random Glucose 130 H Calcium 10.1 Total Bilirubin 0.5 AST 14 ALT 12 Alkaline Phosphatase 108 Troponin I High Sens 4.5 Total Protein 6.7 Albumin 4.0 Lipase 21 Urine Color Yellow Urine Appearance Clear Urine pH 6.0 Ur Specific [place] >= 1.030 H Urine Protein Trace Urine Glucose (UA) Negative Urine Ketones Negative Urine Blood Negative Urine Nitrite Negative Ur Leukocyte Esterase Negative Blood Type Antibody Screen 01/26/24 06:45 WBC RBC Hgb Hct MCV MCH MCHC RDW Plt Count MPV Immature Gran % (Auto) Neut % (Auto) Lymph % (Auto) [place] % (Auto) Eos % (Auto) Baso % (Auto) Lymph # (Auto) [place] # (Auto) Eos # (Auto) Baso # (Auto) Abs Immat Gran (auto) Absolute Neuts (auto) Absolute Nucleated RBC Nucleated RBC % (auto) PT INR Sodium Potassium Chloride Carbon Dioxide Anion Gap BUN Creatinine Estim Creat Clear Calc Estimated GFR Random Glucose Calcium Total Bilirubin AST ALT Alkaline Phosphatase Troponin I High Sens Total Protein Albumin Lipase Urine Color Urine Appearance Urine pH Ur Specific [place] Urine Protein Urine Glucose (UA) Urine Ketones Urine Blood Urine Nitrite Ur Leukocyte Esterase Blood Type O Negative Antibody Screen NEGATIVE Airway Mallampati Class: III TM Dist: >3cm Neck ROM: Full Heart: RRR Lungs: CTA Assessment and Plan Final Anesthetic Review Family History of Problems with Anesthesia: No History of Problems with Anesthesia: No NPO: Yes ASA Class: III Final Preanesthetic Review: Meds/Allgs Chart Reviewed, Consent Obtained/Reviewed and Anes Risks/Benef Reviewed Patient Risk: Intermediate Procedure Risk: Intermediate Anesthetic Plan Anesthetic Plan: GA Disposition: Standard PACU
--- NOTE | 2024-01-26 15:43 | PC.NURSE ---
PATIENT WAS CANCELLED BY MD GARDUNO DUE TO ROOMS RUNNING LATE. PATIENT AWARE OF PLAN. PATIENT IS AN ED PATIENT AND ADMITTED. CALLED [facility] TO GET A ROOM ASSIGNED FOR PATIENT TO BE ADMITTED. CAN NOT GO TO THE ED. AWAITING FOR ROOM ASSIGNMENT TO BRING PATIENT TO HER ROOM TO BE ADMITTED. AWARE THAT THE PATIENT WILL BE ON TOMORROWS SCHEDULE.
[2024-01-26] MEDS: oxyCODONE HCl Immed Release 5 MG TABLET PO (21:10)
[2024-01-27] VITALS (9 sets, daily range): BP systolic 113–148; BP diastolic 56–82; PULSE 50–58; RESP 13–18; TEMP 36.1–36.8; O2SAT 93–98
[2024-01-27] MEDS: Dextrose 5 % and Lactated Ring 1,000 ML 125 ML IVCONT ×2 (02:44→14:39)
[2024-01-27] MEDS: metroNIDAZOLE/NS 500 MG/100 ML PIGGYBACK 100 MG IV ×2 (02:52→11:31)
[2024-01-27] MEDS: cefTRIAXone sodium 1 GM in 0.9 % Sodium Chloride 50 ML IV (05:04)
--- NOTE | 2024-01-27 07:46 | P.PNGS_ITS ---
Subjective Subjective Date of Service: 01/27/24 Interval history: Feels well this morning, RUQ improved. Would like to go home after the procedure. Physical Exam 2 Vital Signs: Vital Signs: Last Vital Signs Temp 96.9 F 01/27/24 04:00 Pulse 58 01/27/24 04:00 Resp 18 01/27/24 04:00 BP 113/56 L 01/27/24 04:00 Pulse Ox 93 01/27/24 04:00 O2 Del Method Room Air 01/27/24 04:00 BMI result Body Mass Index 45.2 Const: General: comfortable, no acute distress and alert Resp: Effort & Inspection: normal respiratory effort GI: Inspection: No distended Palpation (GI): Soft to palpation, Tenderness to palpation present (GI) (mild RUQ ) and no guarding Skin: General skin exam: no rashes or lesions noted and no jaundice Objective Data Active Medications Calcium Carbonate (Calcium Carbonate 750 Mg Tab.Chew) 750 mg PO Q4H PRN PRN Reason: Heartburn Hydromorphone HCl (Hydromorphone Hcl 0.5 Mg/0.5 Ml Syringe) 0.5 mg IVPUSH Q3H PRN; Protocol PRN Reason: Pain, Severe (Pain Scale 7-10) Dextrose/Lactated Ringer's (D5lr) 1,000 mls @ 125 mls/hr IVCONT .Q8H ON LICENSE OF [facility] Last Infusion: 01/27/24 05:46 Dose: 125 mls/hr Documented By: ANTONY Ceftriaxone Sodium 1 gm/ (Sodium Chloride) 50 mls @ 100 mls/hr IV Q12H ON LICENSE OF [facility] Last Infusion: 01/27/24 05:46 Dose: Infused Documented By: ANTONY Metronidazole (Flagyl) 500 mg in 100 mls @ 100 mls/hr IV Q6H ON LICENSE OF [facility] Last Infusion: 01/27/24 04:58 Dose: Infused Documented By: ANTONY Clindamycin Phosphate (Cleocin) 900 mg in 50 mls @ 50 mls/hr IV PREOP ONE Stop: 01/27/24 07:59 Magnesium Hydroxide (Milk Of Magnesia 30 Ml Oral.Susp) 30 ml PO DAILY PRN PRN Reason: Constipation Melatonin (Melatonin 3 Mg Tablet) 6 mg PO BEDTIME PRN PRN Reason: Insomnia Ondansetron HCl (Ondansetron Hcl 4 Mg/2 Ml Vial) 4 mg IVPUSH QID PRN PRN Reason: Nausea Oxycodone HCl (Oxycodone Hcl Immed Release 5 Mg Tablet) 5 mg PO Q6H PRN PRN Reason: Pain, Moderate(Pain Scale 4-6) Last Admin: 01/26/24 21:10 Dose: 5 mg Documented By: CORNELIUS Sodium Chloride (0.9 % Sodium Chloride Flush 3 Ml Syringe) [facility] Last Admin: 01/26/24 23:14 Dose: Not Given Documented By: ANTONY Non-Admin Reason: IV Running Labs 01/26/24 03:06 01/26/24 03:06 Labs: Laboratory Results - last 24 hr 01/26/24 06:45 Blood Type O Negative Antibody Screen NEGATIVE Procedures Date of Service Date of Service: 01/27/24 Progress Note: A&P Assessment and plan (1) Acute cholecystitis: Status: Acute Plan Plan for lap stevie, possible open today. Patient NPO. Dc to home following if tolerating solid diet, pain controlled. Patient comfortable with plan. F/u in office in 1 week post op. Time Spent With Patient Time: Total time managing care of this patient today ____ minutes. Quality Stroke Does the patient have a stroke diagnosis?: No VTE Prior VTE?: No VTE Risk Level:: Surgical - moderate VTE Device Contraindication: N/A - Device Ordered VTE Drug Contraindication: N/A - Med Ordered
--- NOTE | 2024-01-27 10:51 | MHC.CM.PN ---
pt lives alone is a recent pt is independent and has a ride home when dcd dc plan home no servies
--- NOTE | 2024-01-27 12:14 | PC.NURSE ---
Patient arrived to preop from floor with one PRN angio. #20 right FA. Site asymptomatic, ordered antibiotics running with no issues.
--- NOTE | 2024-01-27 12:59 | HO.ANESPROP2 ---
[facility] Active Problems Active Problems: All Active Problems Acute cholecystitis (Acute) Abdominal pain (Acute) Past Medical History Medical History HTN (hypertension) Functional capacity: independent ambulation Patient : No Family History Family history of problems with anesthesia: No Surgical History Surgical History History of hysterectomy History of Problems with Anesthesia: No Social History Social History Alcohol intake: never Patient Tobacco Use Status: Never used Tobacco Second Hand Smoke Exposure: No service: No Meds Allergies Allergy/AdvReac Type Severity Reaction Status Date / Time Penicillins [PENICILLINS] Allergy Unknown SWELLING Verified 01/26/24 02:53 Active Medications: Current Medications Calcium Carbonate (Calcium Carbonate 750 Mg Tab.Chew) 750 mg PO Q4H PRN PRN Reason: Heartburn Hydromorphone HCl (Hydromorphone Hcl 0.5 Mg/0.5 Ml Syringe) 0.5 mg IVPUSH Q3H PRN; Protocol PRN Reason: Pain, Severe (Pain Scale 7-10) Dextrose/Lactated Ringer's (D5lr) 1,000 mls @ 125 mls/hr IVCONT .Q8H [facility] Last Infusion: 01/27/24 11:31 Dose: 0 mls/hr Ceftriaxone Sodium 1 gm/ (Sodium Chloride) 50 mls @ 100 mls/hr IV Q12H [facility] Last Infusion: 01/27/24 05:46 Dose: Infused Metronidazole (Flagyl) 500 mg in 100 mls @ 100 mls/hr IV Q6H [facility] Last Admin: 01/27/24 11:31 Dose: 100 mls/hr Magnesium Hydroxide (Milk Of Magnesia 30 Ml Oral.Susp) 30 ml PO DAILY PRN PRN Reason: Constipation Melatonin (Melatonin 3 Mg Tablet) 6 mg PO BEDTIME PRN PRN Reason: Insomnia Ondansetron HCl (Ondansetron Hcl 4 Mg/2 Ml Vial) 4 mg IVPUSH QID PRN PRN Reason: Nausea Oxycodone HCl (Oxycodone Hcl Immed Release 5 Mg Tablet) 5 mg PO Q6H PRN PRN Reason: Pain, Moderate(Pain Scale 4-6) Last Admin: 01/26/24 21:10 Dose: 5 mg Sodium Chloride (0.9 % Sodium Chloride Flush 3 Ml Syringe) 3 ml IVFLUSH [facility] Last Admin: 01/27/24 09:23 Dose: Not Given Home Medications ?Medication ?Instructions ?Recorded ?Confirmed ?Last Taken ?Type cholecalciferol (vitamin D3) 50 50 mcg PO DAILY 01/26/24 01/26/24 01/24/24 History mcg (2,000 unit) capsule losartan 50 mg tablet 50 mg PO DAILY 01/26/24 01/26/24 01/24/24 History spironolactone 25 mg tablet 25 mg PO BEDTIME 01/26/24 01/26/24 01/24/24 History Exam Height,Weight and Vital Signs: Height 5 ft 1 in Weight 108.5 kg Last Vital Signs Temp 98.2 F 01/27/24 11:58 Pulse 55 01/27/24 11:58 Resp 16 01/27/24 11:58 BP 148/82 H 01/27/24 11:58 Pulse Ox 98 01/27/24 11:58 O2 Del Method Room Air 01/27/24 11:58 Pertinent Lab Results Pertinent Lab Results: Laboratory Tests 01/26/24 01/26/24 01/26/24 03:06 05:57 06:31 WBC 5.7 RBC 3.97 L Hgb 11.9 L Hct 35.0 L MCV 88.2 MCH 30.0 MCHC 34.0 RDW 13.5 Plt Count 192 MPV 12.4 H Immature Gran % (Auto) 0.2 Neut % (Auto) 66.0 Lymph % (Auto) 23.4 [place] % (Auto) 7.8 Eos % (Auto) 1.9 Baso % (Auto) 0.7 Lymph # (Auto) 1.3 [place] # (Auto) 0.4 Eos # (Auto) 0.1 Baso # (Auto) 0.0 Abs Immat Gran (auto) 0.01 Absolute Neuts (auto) 3.7 Absolute Nucleated RBC 0.000 Nucleated RBC % (auto) 0.0 PT 12.9 INR 1.1 Sodium 144 Potassium 3.8 Chloride 109 H Carbon Dioxide 24 Anion Gap 15 BUN 16 Creatinine 0.84 Estim Creat Clear Calc 82.0 Estimated GFR > 60 Random Glucose 130 H Calcium 10.1 Total Bilirubin 0.5 AST 14 ALT 12 Alkaline Phosphatase 108 Troponin I High Sens 4.5 Total Protein 6.7 Albumin 4.0 Lipase 21 Urine Color Yellow Urine Appearance Clear Urine pH 6.0 Ur Specific [place] >= 1.030 H Urine Protein Trace Urine Glucose (UA) Negative Urine Ketones Negative Urine Blood Negative Urine Nitrite Negative Ur Leukocyte Esterase Negative Blood Type Antibody Screen 01/26/24 06:45 WBC RBC Hgb Hct MCV MCH MCHC RDW Plt Count MPV Immature Gran % (Auto) Neut % (Auto) Lymph % (Auto) [place] % (Auto) Eos % (Auto) Baso % (Auto) Lymph # (Auto) [place] # (Auto) Eos # (Auto) Baso # (Auto) Abs Immat Gran (auto) Absolute Neuts (auto) Absolute Nucleated RBC Nucleated RBC % (auto) PT INR Sodium Potassium Chloride Carbon Dioxide Anion Gap BUN Creatinine Estim Creat Clear Calc Estimated GFR Random Glucose Calcium Total Bilirubin AST ALT Alkaline Phosphatase Troponin I High Sens Total Protein Albumin Lipase Urine Color Urine Appearance Urine pH Ur Specific [place] Urine Protein Urine Glucose (UA) Urine Ketones Urine Blood Urine Nitrite Ur Leukocyte Esterase Blood Type O Negative Antibody Screen NEGATIVE Airway Mallampati Class: III TM Dist: >3cm Neck ROM: Full Heart: RRR Lungs: CTA Assessment and Plan Assessment Anesthesia Assessment: Anesthesia Plan Discussed Final Anesthetic Review Family History of Problems with Anesthesia: No History of Problems with Anesthesia: No NPO: Yes ASA Class: III Final Preanesthetic Review: Consent Obtained/Reviewed and Anes Risks/Benef Reviewed Patient Risk: Intermediate Procedure Risk: Intermediate Anesthetic Plan Anesthetic Plan: GA Disposition: Standard PACU
--- NOTE | 2024-01-27 13:29 | W.PM.OPN ---
Operative Note Operative Note Date of Service: 01/27/24 Narrative: Preoperative diagnosis: [] Acute cholecystitis Postop diagnosis: [] The same Procedure [] laparoscopic cholecystectomy Surgeon: [] Aryan Anesthesia Assistant: [] Edda Type of Anesthesia: [] General Indication for surgery: [] Edematous inflamed gallbladder with omental adhesions to it. Large gallstones within the gallbladder. Very corpulent abdomen Findings: [] Patient brought to the operating room, placed on operative table supine position, after an adequate level of general anesthesia was induced, the patient's abdomen was prepped and draped in usual sterile fashion. Using a supraumbilical curvilinear incision, Marie technique was used to insufflate abdominal cavity to 15 mm of CO2. Upper midline and right subcostal ports were placed under direct laparoscopic view, and the patient placed in reverse Trendelenburg position, and tilted to the left. Gallbladder habits omental adhesions swept off that. Next there was grasped with laparoscopic graspers and retracted superiorly and laterally. [place] was approached with the cystic artery and cystic duct were each identified, circumferentially skeletonized, traced directly into the gallbladder, and critical view obtained. Each was clipped proximally x2, distally x1, and transected gallbladder was then cauterized in the gallbladder fossa using Bovie. Specimen was placed in an Endo-Catch bag, a retrieved through the umbilical port. Abdominal cavity was copiously irrigated and secured hemostasis. All ports removed under direct laparoscopic view. Wounds were closed in the following manner; umbilical wound has fascia reapproximated using interrupted 0 Vicryl sutures. Skin wounds were closed using subcuticular 4-0 Vicryl sutures followed by Steri-Strips and sterile dressings. Wounds were infiltrated 0.5% Marc[place] at completion. Sponge, needle, and instrument counts reported correct. Patient tolerated the procedure well and emerged from anesthesia stable condition. EBL minimal
--- NOTE | 2024-01-27 14:25 | MHC.CM.PN ---
DP: PT HAS BEEN MEDICALLY CLEARED FOR DC HOME NO SERVICES. PT HAS OWN [facility] HOME.
--- NOTE | 2024-01-27 15:16 | PM.DS ---
DS: Providers Provider Date of Service: 01/27/24 Date of admission: 01/26/24 10:58 Date of discharge: 01/27/24 Primary care physician: Jessica Chisholm MD Attending physician on admission: Fabio Baeza Attending physician on discharge: Fabio Baeza DS: Diagnosis Discharge Diagnosis (1) Acute cholecystitis: Status: Acute DS: Summary Hospital Course Hospital Course: HPI AT ADMISSION: Daily Walker is a 58 year old female with PMH significant for hypertension, asthma who presented to the ED with complaints of acute onset of abdominal pain. She reports she awoke around 1am with severe epigastric/RUQ pain that wrapped around to her back. It was associated with nausea and vomiting. She thought it was heartburn at first and tooks tums with no relief. The pain worsened in severity and became so bad she sought care in the ED. Work up included CBC, BMP, LFTs. ABD US showed gallstone impacted at the GB neck, mild gallbladder distention and mild wall thickening. She denies similar episodes of prior pain. She denies fever, chills, change in skin or urine color. She has a surgical history significant for a hysterectomy. HOSPITAL COURSE: The patient was admitted to the surgical service for further treatment of the acute cholecystitis. She elected to proceed with laparoscopic cholecystectomy, possible open. She was added onto the OR schedule for the following day. She was started on IV rocephin and flagyl empirically. On 01/27/24, a laparoscopic cholecystectomy was performed by Dr. Baeza without complication. The patient tolerated the procedure well. She had an uncomplicated recovery course. She felt well and was tolerating a solid diet without nausea or vomiting with had good pain control and was hemodynamically stable. She felt ready for discharge. She was discharged to home on 01/27/24 following the procedure in stable condition. She is to follow up in the office in 1 week. Status at Discharge Functional status at discharge: independent ambulation Overall status at discharge: patient is progressing back to baseline Time Attestation Discharge Coordination Time (in mins): 30 Quality: Safe Use of Opioids Does Pt have an Active Cancer Diagnosis on the Problem List?: No Quality: Stroke Does the patient have a stroke diagnosis?: No Physical Exam Vital Signs: Vital Signs: Last Vital Signs Temp 97.7 F 01/27/24 14:03 Pulse 54 01/27/24 14:03 Resp 16 01/27/24 14:03 BP 135/73 01/27/24 14:03 Pulse Ox 96 01/27/24 14:03 O2 Del Method Room Air 01/27/24 14:03 O2 Flow Rate 3 01/27/24 13:48 BMI result Body Mass Index 45.2 Const: General: comfortable, no acute distress and alert Resp: Effort & Inspection: normal respiratory effort GI: Inspection: No distended and Yes incision (dressings clean and intact) Palpation (GI): Soft to palpation Skin: General skin exam: no rashes or lesions noted and no jaundice DS: Data Data Completed and Pending Pending studies at discharge: Pending at discharge 01/27/24 13:09 Surgical [PTH] Routine Discharge Plan Discharge Patient Disposition: Home, Self-Care Discharge Diagnosis: acute cholecystitis s/p laparoscopic cholecystectomy Referrals: Fabio Baeza MD [Physician] - 1 Week Jessica Chisholm MD [Primary Care Provider] - 1 Week Discharge Medications: New hydrocodone-acetaminophen 5-325 mg tablet 1 tab PO Q4-6H PRN (Reason: pain) Qty: 30 0RF Rx Instructions: Partial Fill upon patient request. docusate sodium [Colace] 100 mg capsule 100 mg PO BID Qty: 30 0RF Continued losartan 50 mg tablet 50 mg PO DAILY spironolactone 25 mg tablet 25 mg PO BEDTIME cholecalciferol (vitamin D3) 50 mcg (2,000 unit) capsule 50 mcg PO DAILY Discharge Orders: Discharge Order (Routine); Ordered 01/27/24 Ordered By: Christianne Bañuelos Diet: Advance to usual diet Activity on Discharge: No heavy lifting Stand Alone Forms: Patient Portal Discharge page Print Language: Ghanaian Activity Restrictions/Additional Instructions: Apply an ice pack for short intervals (20 minutes on, followed by at least 20 minutes off) for the first 2 days. Do not apply heat. Do not use creams, lotions, or topical antibiotics. These can cause infection or allergic reaction. Ok to shower 48 hours after your surgery. Remove dressings in 2 days and replace as needed. You have steri strips (small white cloth strips) covering your incision- these will fall off ~1 week. Follow up in office with Dr. Baeza in 1 week. ([phone]) No heavy lifting (>10lbs) or strenuous activity! Call Your Doctor If: -Your temperature exceeds 101.5? F -You experience excessive pain or swelling -You have an unexpected reaction to medication -You have excessive bleeding -You experience continued vomiting/nausea -Your incision begins to separate -Your incision shows signs of infection such as increased redness, swelling, excessive pain, drainage (light blood or clear fluid is normal) or heat Care Plan Goals: Return to baseline health and resume normal activities following recovery period. Health Concerns: acute cholecystitis Plan of Treatment: s/p laparoscopic cholecystectomy Assessment: Doing well post op. Discharge Date/Time: 01/27/24 15:36
== END 2024-01-27 15:36 | disposition home or self-care (01) ==
LOC: HO.ED 08:54 → HO.EDOVER 11:04 → HO.S3 16:59
PROVIDERS: Surgery; Admitting Provider Physician Assistant Surgical; Emergency Provider Emergency Medicine; PCP Internal Medicine; Visit Provider Physician Assistant Surgical
PROC: 0FT44ZZ Resection of Gallbladder, Percutaneous Endoscopic Approach (ICD-10-PCS; CPT 47562; principal; 2024-01-27 12:30)
DX: K81.0 Acute cholecystitis (principal); R10.11 Right upper quadrant pain; R11.2 Nausea with vomiting, unspecified; I10 Essential (primary) hypertension; R10.13 Epigastric pain
CPT/HCPCS: 47562; 36415; 76705; 80053; 81003; 83690; 84484; 85025; 85610; 86850; 86900; 86901; 88304; 93005; 96361; 96365; 96366; 96367; 96375; 99221; 99285; J0131; J0696; J1100; J1170; J1836; J2250; J2270; J2405; J2704; J2795; J3010

== ENCOUNTER → 2024-01-26 02:57 | Outpatient (BNV) | payer OTHER, SELFPAY | PROVIDERS: Admitting Provider Physician Assistant Surgical; Emergency Provider Emergency Medicine; PCP Internal Medicine; Visit Provider Internal Medicine | DX: R10.13 Epigastric pain (principal) | CPT/HCPCS: 93010 ==

== ENCOUNTER → 2024-01-26 10:58 | Outpatient (BNV) | payer OTHER, SELFPAY | PROVIDERS: Admitting Provider Physician Assistant Surgical; Emergency Provider Emergency Medicine; PCP Internal Medicine; Visit Provider Physician Assistant Surgical | DX: K81.0 Acute cholecystitis (principal) | CPT/HCPCS: 47562; 99024; 99222 ==

== ENCOUNTER 2024-02-03 13:21 | Outpatient (AMB) | payer OTHER, SELFPAY ==
--- NOTE | 2024-02-03 13:23 | MHC.OFFVIS ---
Vital Signs 02/03/24 13:27 Height 5 ft 1 in Weight 238 lb 1.588 oz BMI 45.0 Intake Visit Reasons: post lap stevie Intake Note: Patient is seen in office for post op assessment post laparoscopic cholecystectomy. Pt c/o: admits to sore and tender in the area, denies redness, discharge or other concerns, still taking pain meds as needed. 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 She is doing quite well. Tolerating her diet. Having bowel movements. Minimal incisional discomfort. Increasing her activity level. PFSH Medical History HTN (hypertension) Surgical History Hx laparoscopic cholecystectomy (~01/27/24) History of hysterectomy Social History Alcohol intake: never Patient Tobacco Use Status: Never used Tobacco Second Hand Smoke Exposure: No service: No Physical Exam Vital Signs: BMI result Body Mass Index 45.0 Eyes Other: Anicteric GI Other: Abdomen is soft. All wounds clean dry and intact. Some mild ecchymosis and tape burn of the right subcostal area but no evidence of any infection Assessment & Plan Assessment & Plan (1) Status post laparoscopic cholecystectomy: Code(s): Z90.49 - Acquired absence of other specified parts of digestive tract Category: Surgical Plan Patient has been given local instructions. She will be given a note to start in 3 weeks for 2 weeks light duty and will otherwise follow-up p.r.n.. All questions answered. Coding Level of Care Code Global (32933) Diagnoses Status post laparoscopic cholecystectomy Z90.49
[2024-02-03 13:27] VITALS: BMI 45.0
== END 2024-02-03 13:35 | disposition home or self-care (01) ==
PROVIDERS: PCP Internal Medicine; Visit Provider Surgery
DX: Z90.49 Acquired absence of other specified parts of digestive tract (principal)
CPT/HCPCS: 99024

== ENCOUNTER → 2024-02-03 13:21 | Outpatient (BNVA) | payer OTHER, SELFPAY | PROVIDERS: PCP Internal Medicine; Visit Provider Surgery ==

== ENCOUNTER 2024-10-03 10:06 | Emergency (ER) | payer OTHER, SELFPAY ==
--- NOTE | ~2024-10-03 | XR_ITS ---
CLINICAL HISTORY: FALL 3 views thoracic spine Comparison: None Findings: Normal vertebral body alignment. No acute fractures or dislocation. No significant degenerative change. IMPRESSION: No acute findings. This document has been electronically signed by: Renard Lopez MD on 10/03/2024 10:30:56
--- NOTE | ~2024-10-03 | XR_ITS ---
CLINICAL HISTORY: fall 3 views lumbar spine Comparison: None Findings: There is straightening of the normal lumbar lordosis compatible with muscle spasm. No acute fractures or dislocation. There is degenerative disc disease particularly at the L4-5 level where there is disc space narrowing and endplate productive changes are noted. IMPRESSION: 1. There is degenerative disc disease particularly at the L4-5 level 2. There is straightening of the normal lumbar lordosis compatible with muscle spasm. This document has been electronically signed by: Renard Lopez MD on 10/03/2024 10:34:42
[2024-10-03 10:08] VITALS: BP 184/70; PULSE 69; RESP 18; TEMP 36.2; O2SAT 95; BMI 45.4
--- NOTE | 2024-10-03 10:11 | ED.BACK ---
HPI - Back Pain/Injury General Chief Complaint: Back Pain/Injury Stated Complaint: back pain s/p fall Time Seen by Provider: 10/03/24 10:11 Source: patient Mode of arrival: ambulatory Limitations: no limitations History of Present Illness ED Provider: HPI Narrative: patient with no significant past medical history apparently was taking shower slipped on the slippery bathtub hitting the handle bar to the mid back in the lower back no prior history of back problems patient is ambulatory with pain no bladder or bowel involvement no other injuries no head injury no loss of consciousness Related Data Home Medications ?Medication ?Instructions ?Recorded ?Confirmed cholecalciferol (vitamin D3) 50 50 mcg PO DAILY 01/26/24 02/03/24 mcg (2,000 unit) capsule losartan 50 mg tablet 50 mg PO DAILY 01/26/24 02/03/24 spironolactone 25 mg tablet 25 mg PO BEDTIME 01/26/24 02/03/24 Previous Rx's ?Medication ?Instructions ?Recorded hydrocodone 5 mg-acetaminophen 325 1 tab PO Q4-6H PRN pain #30 tabs 01/26/24 mg tablet docusate sodium 100 mg capsule 100 mg PO BID #30 caps 01/27/24 (Colace) ibuprofen 600 mg tablet 600 mg PO Q6H PRN fever or pain 10/03/24 #30 tabs Allergies Allergy/AdvReac Type Severity Reaction Status Date / Time Penicillins [PENICILLINS] Allergy Unknown SWELLING Verified 10/03/24 10:09 Review of Systems Review of Systems: Yes all other systems are reviewed and are negative PMFSH Past Medical History Medical History HTN (hypertension) Surgical History Hx laparoscopic cholecystectomy (~01/27/24) History of hysterectomy Social History Social History Alcohol intake: never Patient Tobacco Use Status: Never used Tobacco Second Hand Smoke Exposure: No Advance Directives: Yes Advance Directives on File: Yes Advance Directives Date on File: 01/28/24 Do you have a plan to hurt others: No Plan service: No Physical Exam Vital Signs: Vital Signs: Last Vital Signs Temp 97.2 F 10/03/24 10:08 Pulse 69 10/03/24 10:08 Resp 18 10/03/24 10:08 BP 184/70 H 10/03/24 10:08 Pulse Ox 95 10/03/24 10:08 O2 Del Method Room Air 10/03/24 10:08 BMI result Body Mass Index 45.4 Appearance: Alert. Oriented X3. No acute distress. Eyes: no pallor or icterus ENT: Pharynx normal. Oral Mucosa moist Neck: Normal inspection. Neck supple. CVS: Normal heart rate and rhythm. Pulses normal. Respiratory: No respiratory distress. Equal air entry bilateral, no wheezing/rales/rhonchi Abdomen: Soft and nontender. Bowel sounds are present, no mass palpable, no CVA tenderness Skin: Skin warm and dry. Normal skin color. Normal skin turgor. back: tenderness T8-T9 vertebra and L2-L3 area sacral sensation intact Extremities: No lower extremity edema. No calf tenderness Neuro: Oriented X 3. No motor deficit. No sensory deficit.No cerebellar signs , cranial nerves II-XII intact Medical Decision Making Medical Decision Making MDM Narrative: patient is status post mechanical fall with negative for fracture will discharge patient home on ibuprofen Independent Interpretation I performed an independent interpretation of an: Plain X-Ray Radiology Impression Discussion of test interpretation with radiology: I have reviewed the radiologist's reading. Radiologist Impression: NAB Discharge Plan Discharge Clinical Impression: Strain of lumbar region, Thoracic back pain Patient Disposition: Home, Self-Care Instructions: Thoracic Pain (ED), Back Pain (ED) Additional Instructions: apply ice pack ibuprofen for pain your x-ray negative for fracture Prescriptions: New ibuprofen 600 mg tablet 600 mg PO Q6H PRN (Reason: fever or pain) Qty: 30 0RF No Action losartan 50 mg tablet 50 mg PO DAILY spironolactone 25 mg tablet 25 mg PO BEDTIME cholecalciferol (vitamin D3) 50 mcg (2,000 unit) capsule 50 mcg PO DAILY hydrocodone-acetaminophen 5-325 mg tablet 1 tab PO Q4-6H PRN (Reason: pain) Qty: 30 0RF Rx Instructions: Partial Fill upon patient request. docusate sodium [Colace] 100 mg capsule 100 mg PO BID Qty: 30 0RF Print Language: Sri Lankan
[2024-10-03 11:35] VITALS: BP 184/70; PULSE 69; RESP 18; TEMP 36.2; O2SAT 95
== END 2024-10-03 11:37 | disposition home or self-care (01) ==
PROVIDERS: Emergency Provider Internal Medicine; PCP Internal Medicine
DX: S39.012A Strain of muscle, fascia and tendon of lower back, initial encounter (principal); W18.2XXA Fall in (into) shower or empty bathtub, initial encounter; Y93.89 Activity, other specified; Y92.002 Bathroom of unspecified non-institutional (private) residence as the place of occurrence of the external cause; Y99.9 Unspecified external cause status; M54.6 Pain in thoracic spine
CPT/HCPCS: 72070; 72100; 99283; 99284

== ENCOUNTER → 2024-10-03 10:16 | Outpatient (BNV) | payer OTHER, SELFPAY | PROVIDERS: Emergency Provider Internal Medicine; PCP Internal Medicine; Visit Provider Radiology Diagnostic Radiology | DX: M51.369 Other intervertebral disc degeneration, lumbar region without mention of lumbar back pain or lower extremity pain (principal); S39.92XA Unspecified injury of lower back, initial encounter | CPT/HCPCS: 72070; 72100 ==